=== PATIENT | female | born 1990 | race Caucasian/White ===

== ENCOUNTER 2016-10-21 12:38 | Emergency (ER) | payer OTHER ==
--- NOTE | 2016-10-21 15:08 | ED ORDER SUMMARY ---
..... Patient: KAITLIN MCCALL OrderSheet [facility] VisitID: [id number] [address] [place] [address] 25y, F Registration Date/Time: 10/21/2016 ORDER SHEET Weight: 42.6 kg (stated) Allergies: No Known Drug Allergy GENERAL ORDERS: CBC w Diff Urgent (13:10 10/21/2016 Michel Payne) (Ack 13:11 TBergley) (13:27 JSanders R.N.) CMP Urgent (13:10 10/21/2016 Michel Payne) (Ack 13:11 TBergley) (13:27 JSanders R.N.) UA-Culture if indicated Urgent (13:10 10/21/2016 Michel Payne) (13:10 JSanders R.N.) (13:11 TBergley) Urine Urgent (13:10/21/2016 Michel Payne) (13:11 TBergley) (13:11 JSanders R.N.) MEDICATION ORDERS: IV FLUIDS: IV NS : initial bolus none -, then 1000 mL/hr for X1 (NOW) (13:10 10/21/2016 Michel Payne) (13:26 JSanders R.N.) Zofran IV 4 mg (NOW) (13:10 10/21/2016 Michel Payne) (13:27 RASHIDanders R.N.) IV NS : initial bolus none -, then 1000 mL/hr for X1 (NOW) (14:32 10/21/2016 Michel Payne) (14:38 RASHIDimbeck R.N.) Zofran IV 4 mg (NOW) (15:14 10/21/2016 Michel Payne) (15:33 RASHIDandertiana R.N.) ORDER SHEET NOTES: [Electronically signed by Varghese Davis Dr. (15:14 10/21/2016)] [Electronically signed by Nusrat Graves R.N. (15:50 10/21/2016)] [Electronically locked/signed by Nusrat Graves R.N. (15:50 10/21/2016)]
--- NOTE | 2016-10-21 15:08 | ED CLINICAL REPORT ---
Clinical Report - Physicians/Mid Levels [facility] [address] [place] [address] 10/21/2016 12:42 Patient: KAITLIN MCCALL Time Seen: 12:54; initial patient contact. Arrived- By private vehicle. Historian- patient. HISTORY OF PRESENT ILLNESS Chief Complaint: VOMITING. This started about 2 days ago and is still present (persistent). The patient has had nausea and vomiting. No diarrhea, constipation or flank pain. She has had mild, crampy abdominal pain. The pain is described as located in the left side of the abdomen and associated with nausea and vomiting. No diarrhea or radiation of abdominal pain to the back. The illness is described as moderate. (Recently found out she was on a home test.). Similar symptoms previously: None. Recent medical care: Not recently seen/assessed. REVIEW OF SYSTEMS No fever, difficulty with urination or headache. She has missed periods. All systems otherwise negative, except as recorded above. PAST HISTORY Costochondritis. Pleurisy. Bronchitis. Depression. Contusion. Abrasion(s). Tonsillitis. UTI - Urinary Tract Infection. SOCIAL HISTORY Current every day smoker. Occasional alcohol use. History of drug use: marijuana. ADDITIONAL NOTES The nursing notes have been reviewed with agreement regarding the chief complaint, PMH and patient medications and allergies. PHYSICAL EXAM Vital Signs: 10/21/2016 12:54 BP: 95/58. HR: 77. RR: 18. O2 saturation: 100%. Temp: 98.3 F. Pain level now: 6/10. Have been reviewed. Hypotensive. Heart rate normal. Respiratory rate normal. Temperature normal. Oxygen saturation normal. Appearance: Alert. Oriented X3. No acute distress. Eyes: Eyes normal inspection. ENT: Dry mucous membranes present. Neck: Normal inspection. CVS: Normal heart rate and rhythm. Heart sounds normal. Respiratory: No respiratory distress. Breath sounds normal. Abdomen: Soft. Mild tenderness in the left side of the abdomen. No guarding or rebound tenderness. Bowel sounds normal. No organomegaly. No mass. Back: Normal inspection. No CVA tenderness. Skin: Normal skin color. No rash. Extremities: No lower extremity edema. Neuro: Oriented X 3. LABS, X-RAYS, AND EKG Laboratory Tests: UA-Culture if indicated: (KARYN: 10/21/2016 13:00) ( [facility] 10/21/2016 13:49) Final results Test Result Flag Units (Reference) URINE COLOR YELLOW URINE APPEARANCE CLEAR URINE GLUCOSE NEGATIVE (NEGATIVE) URINE BILIRUBIN NEGATIVE (NEGATIVE) URINE KETONE 3+ (NEGATIVE) URINE SPECIFIC GRAVITY >= 1.030 (1.010-1.030) URINE PH 6.0 (5.0-8.0) URINE PROTEIN TRACE (NEGATIVE) URINE UROBILINOGEN 1.0 EU/dL (0.2-1.0) URINE NITRITE NEGATIVE (NEGATIVE) URINE BLOOD NEGATIVE (NEGATIVE) URINE LEUK ESTERASE NEGATIVE (NEGATIVE) URINE RBC NONE SEEN rbc/hpf (0-1) URINE WBC 0-1 wbc/hpf (0-1) URINE EPITHELIAL CELLS 1-3 EPI/hpf (0-5) URINE BACTERIA NONE SEEN (NONE SEEN) URINE COMMENT CULT NOT INDICATED URINE CULTURES ARE SET-UP BASED ON THE FOLLOWING CRITERIA:POSITIVE NITRITEPOSITIVE LEUKOCYTE ESTERASEGREATER THAN 10 WHITE BLOOD CELLSMODERATE (2+) OR GREATER BACTERIA Urine: (KARYN: 10/21/2016 13:00) ( [facility] 10/21/2016 13:24) Final results Test Result Flag Units (Reference) URINE POSITIVE CBC w Diff: (KARYN: 10/21/2016 12:25) ( [facility] 10/21/2016 13:44) Final results Test Result Flag Units (Reference) WHITE BLOOD COUNT 7.9 K/uL (4.5-11.5) RED BLOOD COUNT 4.64 M/uL (4.00-5.20) HEMOGLOBIN 13.3 gm/dL (12.0-16.0) HEMATOCRIT 40.5 % (36.0-46.0) MEAN CELL VOLUME 87 fL (80-100) MEAN CORPUSCULAR HGB 29 pg (26-34) MEAN CORPUSCULAR HGB CONC 33 g/dL (31-37) RED CELL DISTRIBUTION WIDTH 14.4 % (11.6-14.8) PLATELET COUNT 268 K/uL (150-400) NEUTROPHIL % 74.9 % (50-75) LYMPH % 16.3 L % (25-40) MONO % 7.8 % (3-14) EOSINOPHIL % 0.7 % (0-4) BASOPHIL % 0.3 % (0-2) CMP: (KARYN: 10/21/2016 12:25) ( MsgRcvd 10/21/2016 14:12) Final results Test Result Flag Units (Reference) GLUCOSE 76 mg/dL (70-110) BUN 9 mg/dL (7-18) CREATININE 0.8 mg/dL (0.6-1.3) Estimated GFR >60 mL/min Estimated GFR- >60 mL/min Note: Persistent reduction over 3 months in eGFR<60 mL/min/1.73 m2 defines CKD. Patients with eGFR values>=60 mL/min/1.73 m2 may also have CKD if evidence ofpersistent proteinuria. Additional information may be foundat www.kidney.org. SODIUM 136 mmol/L (136-145) POTASSIUM 4.0 mmol/L (3.5-5.1) CHLORIDE 98 mmol/L (98-107) CARBON DIOXIDE 20 L mmol/L (21-32) CALCIUM 9.4 mg/dL (8.5-10.1) TOTAL PROTEIN 7.9 g/dL (6.4-8.2) ALBUMIN 4.0 g/dL (3.3-5.0) BILIRUBIN, TOTAL 0.6 mg/dL (0.0-1.0) ALKALINE PHOSPHATASE 67 U/L (46-116) AST (SGOT) 13 L U/L (15-37) ALT (SGPT) 21 U/L (12-78) . PROGRESS AND PROCEDURES Course of Care: 15:08. Evaluation after IV fluids and Zofran. The patient's symptoms are now gone. Physical exam findings are improved. Disposition: Discharged home in good and improved condition. Condition: good. CLINICAL IMPRESSION Vomiting with nausea and dehydration. Not intractable or bilious. First trimester ; positive test in emergency department. Ultrasound was not performed to determine location because the pain was not related to . INSTRUCTIONS Drink plenty of fluids. Prescription Medications: Zofran (orally disintegrating tablets) 4 mg: take 1 orally every 6 hours as needed for nausea and vomiting. Dispense ten (10). No refill. Substitution is permissible. Follow-up: Screening today revealed the patient's blood pressure to be in the normal range. Follow-up with: [facility], [facility], , [address] [place] [address], [address] [place] [address] Follow up in about three days. Call for an appointment. (Electronically signed by Varghese Davis Dr. 10/21/2016 15:14)
--- NOTE | 2016-10-21 15:08 | ED NURSING NOTES ---
Clinical Report - Nurses [facility] [address] [place] [address] 10/21/2016 12:42 Patient: KAITLIN MCCALL TRIAGE Triage time 12:54 Oct 21 2016. Acuity: LEVEL 4. Chief Complaint: NAUSEA and VOMITING and (Patient just found out she was couple weeks ago). 13:04 10/21/16. SEPSIS SCREEN: Sepsis Screen. Negative (no infection suspected/documented). TRINA COMA SCORE: [place] Coma Scale: 15- eyes open spontaneously (4); best verbal response- oriented x 4 (5); best motor response- obeys commands (6). --13:04 Nusrat Graves R.N. 12:54 10/21/16. BP: 95/58 (regular adult cuff) taken on the left arm, while sitting. HR: 77. RR: 18 (regular). O2 saturation: 100% on room air. Temp: 98.3 F (oral). Pain level now: 6/10. Additional comments: Lower back. --13:04 Nusrat Graves R.N. Weight: 42.6 kg stated. Height/Length: 64 inches Per Patient. BMI: 16.1. --12:58 Nusrat Graves R.N. Medications None. --12:55 Nusrat Graves R.N. Allergies No Known Drug Allergy. --12:55 Nusrat Graves R.N. History Historian: patient. Primary physician (EVENovember). This is a new problem. Started while sleeping (3 days ago). She has had nausea, vomiting and cramping abdominal pain. The pain is described as located in the left side of the abdomen. Last oral intake by patient was (drank water couple hours ago, hasnt eaten for two days). Treatment HOSPITAL ADMISSIONS OFFICER: None. PAST MEDICAL HX: Last normal menstrual period- Sep 01. Sexual history - sexually active. Currently : took home test, not confirmed by physician yet. In 1st trimester. confirmed with home test and urine test. Has had no care. SOCIAL HX: Light tobacco smoker (cigarette)- less than 1/2 a pack per day. Occasional alcohol use; consumes liquor. History of heavy drug use: marijuana. Recently used drugs yesterday. No recent travel. No infectious disease exposure. No known contact with a sick individual. ABUSE ASSESSMENT: No report of abuse. --13:04 Nusrat Graves R.N. PROBLEMS: Costochondritis. Pleurisy. Bronchitis. Depression. Contusion. Abrasion(s). Tonsillitis. UTI - Urinary Tract Infection. Immunizations. --12:57 Nusrat Graves R.N. ADDITIONAL SURGERIES: no known surgeries. Interventions ID band on patient. To treatment room. --13:04 Nusrat Graves R.N. PHYSICAL ASSESSMENT 13:05 10/21/16. Ambulatory to room. Patient gowned. GENERAL / NEURO / PSYCH: Alert. Oriented X 4. Appears in pain. HEENT: Mucous membranes are pink. RESPIRATORY: Respirations not labored. CVS: Capillary refill less than 2 seconds. GI / : The patient has had nausea. Emesis noted. Has vomited numerous times. Guarding present. Stool color normal. SKIN: Skin is warm. --13:05 Nusrat Graves R.N. NURSING PROGRESS NOTES 13:06 10/21/16. The plan of care for this patient has been created. Patient gowned. Head of bed elevated. Reassurance given. Two patient identifiers checked. Call light placed in reach. Side rails up x 1. Bed placed in lowest position. Brakes of bed on. Patient ready for evaluation- chart flagged and ED physician notified. --13:06 Nusrat Graves R.N. 13:22 10/21/2016 Zofran (Ondansetron HCl) IVP 4 mg given over 2 minute(s) via site #1. Allergies verified and confirmed 5 rights. IV patency established. IV site checked: no pain, redness, or swelling. IV flushed thoroughly pre- and post-medication administration. IVP given by RN. --13:27 Nusrat Graves R.N. 13:26 10/21/2016 Site #1 started via IV in the right antecubital space with an 20g angiocath, with aseptic technique and good blood return; one attempt. Blood drawn: rainbow set. Saline lock flushed with 10 mL saline. --13:26 Nusrat Graves R.N. 13:26 10/21/2016 Started bag #1 1000 mL IV Fluids IV NS (Saline); at 1000 mL/hr over 1 hour(s) via site #1 via dial-a-flow. Allergies verified and confirmed 5 rights. IV patency established. IV site checked: no pain, redness, or swelling. IV flushed thoroughly pre- and post-medication administration. --13:26 Nusrat Graves R.N. 14:27 10/21/16. BP: 102/61 (regular adult cuff) taken on the left arm, while sitting. HR: 68. RR: 18 (regular). O2 saturation: 100% on room air. Temp: 98.2 F (oral). Pain level now: 0/10. --14:28 Nusrat Graves R.N. 14:28 10/21/2016 IV Fluids IV NS Discontinued: bag #1 completed. Total amount infused: 1000 mL. IV patency established. IV site checked: no pain, redness, or swelling. IV flushed thoroughly. --14:28 Nusrat Graves R.N. 14:28 10/21/2016 Zofran IVP Response: no adverse reaction pain is gone now. Symptoms have improved the patient feels better. --14:29 Nusrat Graves R.N. 14:28 10/21/16. ( Nausea is gone now and fluid is done. Patient sitting quietly watching TV). --14:28 Nusrat Graves R.N. 14:38 10/21/2016 Started bag #1 1000 mL IV Fluids IV NS (Saline); bolus of 1000 mL over 1 hour(s) via site #1. Allergies verified and confirmed 5 rights. IV patency established. IV site checked: no pain, redness, or swelling. IV flushed thoroughly pre- and post-medication administration. --14:38 Luc Villeda R.N. DISPOSITION / DISCHARGE <<STRICKEN ENTRY-- 13:41 10/21/2016 Site #1 removed upon discharge. Bandaid applied. --13:41 Nusrat Graves R.N. --END STRIKE>> Charted on wrong patient. --13:44 Nusrat Graves R.N. <<STRICKEN ENTRY-- 13:40 10/21/16. BP: 114/75 (regular adult cuff) taken on the left arm, while sitting. HR: 97. RR: 18 (regular). O2 saturation: 98% on room air. Temp: 98.1 F (oral). Pain level now: 0/10. --13:42 Nusrat Graves R.N. --END STRIKE>> Charted on wrong patient. --13:43 Nusrat Graves R.N. <<STRICKEN ENTRY-- 13:42 10/21/16. Condition at departure: unchanged. No learning barriers present. Discharge instructions provided and reviewed with the patient. Reviewed warnings (Patient understands DVT sxs). Patient verbalized understanding. Written instructions provided in [place]. The patient was discharged by the physician. --13:42 Nusrat Graves R.N. --END STRIKE>> Charted On Wrong Patient --13:43 Nusrat Graves R.N. <<STRICKEN ENTRY-- Departure time: 13:42 Oct 21 2016. --13:42 Nusrat Graves R.N. --END STRIKE>> Charted On Wrong Patient --13:43 Nusrat Graves R.N. 15:32 10/21/2016 IV Fluids IV NS Discontinued: bag #2 completed upon discharge. Total amount infused: 1000 mL. IV patency established. IV site checked: no pain, redness, or swelling. IV flushed thoroughly. --15:32 Nusrat Graves R.N. 15:33 10/21/2016 Zofran (Ondansetron HCl) IVP 4 mg given over 1 minute(s) via site #1. Allergies verified and confirmed 5 rights. IV patency established. IV site checked: no pain, redness, or swelling. IV flushed thoroughly pre- and post-medication administration. IVP given by RN. --15:33 Nusrat Graves R.N. 15:40 10/21/2016 Site #1 removed upon discharge. Bandaid applied. --15:40 Nusrat Graves R.N. 15:41 10/21/16. Condition at departure: improved. No learning barriers present. Discharge instructions provided and reviewed with the patient. Reviewed medication(s) side effects, precautions and dosing information. Prescription(s) given to the patient. Patient verbalized understanding. Written instructions provided in [place]. The patient was discharged by the physician. She was discharged home and accompanied by spouse. She left the Emergency Department ambulatory and via private vehicle. Spouse driving. --15:41 Nursat Graves R.N. 15:32 10/21/16. BP: 100/59 (regular adult cuff) taken on the left arm, while sitting. HR: 69. RR: 18 (regular). O2 saturation: 100% on room air. Temp: 97.8 F (oral). Pain level now: 0/10. --15:41 Nusrat Graves R.N. Locked/Released at 10/21/2016 15:50 by Nusrat Graves R.N.
--- NOTE | 2016-10-21 15:08 | ED ORDER SUMMARY ---
..... Patient: KAITLIN MCCALL OrderSheet [facility] VisitID: [id number] [address] [place] [address] 25y, F Registration Date/Time: 10/21/2016 ORDER SHEET Weight: 42.6 kg (stated) Allergies: No Known Drug Allergy GENERAL ORDERS: CBC w Diff Urgent (13:10 10/21/2016 Michel Payne) (Ack 13:11 TBergley) (13:27 JSanders R.N.) CMP Urgent (13:10 10/21/2016 Michel Payne) (Ack 13:11 TBergley) (13:27 JSanders R.N.) UA-Culture if indicated Urgent (13:10 10/21/2016 Michel Payne) (13:10 JSanders R.N.) (13:11 TBergley) Urine Urgent (13:10/21/2016 Michel Payne) (13:11 TBergley) (13:11 JSanders R.N.) MEDICATION ORDERS: IV FLUIDS: IV NS : initial bolus none -, then 1000 mL/hr for X1 (NOW) (13:10 10/21/2016 Michel Payne) (13:26 JSanders R.N.) Zofran IV 4 mg (NOW) (13:10 10/21/2016 Michel Payne) (13:27 RASHIDanders R.N.) IV NS : initial bolus none -, then 1000 mL/hr for X1 (NOW) (14:32 10/21/2016 Michel Payne) (14:38 RASHIDimbeck R.N.) Zofran IV 4 mg (NOW) (15:14 10/21/2016 Michel Payne) (15:33 RASHIDandertiana R.N.) ORDER SHEET NOTES: [Electronically signed by Varghese Davis Dr. (15:14 10/21/2016)] [Electronically signed by Nusrat Graves R.N. (15:50 10/21/2016)] [Electronically locked/signed by Nusrat Graves R.N. (15:50 10/21/2016)]
--- NOTE | 2016-10-21 15:08 | ED CLINICAL REPORT ---
Clinical Report - Physicians/Mid Levels [facility] [address] [place] [address] 10/21/2016 12:42 Patient: KAITLIN MCCALL Time Seen: 12:54; initial patient contact. Arrived- By private vehicle. Historian- patient. HISTORY OF PRESENT ILLNESS Chief Complaint: VOMITING. This started about 2 days ago and is still present (persistent). The patient has had nausea and vomiting. No diarrhea, constipation or flank pain. She has had mild, crampy abdominal pain. The pain is described as located in the left side of the abdomen and associated with nausea and vomiting. No diarrhea or radiation of abdominal pain to the back. The illness is described as moderate. (Recently found out she was on a home test.). Similar symptoms previously: None. Recent medical care: Not recently seen/assessed. REVIEW OF SYSTEMS No fever, difficulty with urination or headache. She has missed periods. All systems otherwise negative, except as recorded above. PAST HISTORY Costochondritis. Pleurisy. Bronchitis. Depression. Contusion. Abrasion(s). Tonsillitis. UTI - Urinary Tract Infection. SOCIAL HISTORY Current every day smoker. Occasional alcohol use. History of drug use: marijuana. ADDITIONAL NOTES The nursing notes have been reviewed with agreement regarding the chief complaint, PMH and patient medications and allergies. PHYSICAL EXAM Vital Signs: 10/21/2016 12:54 BP: 95/58. HR: 77. RR: 18. O2 saturation: 100%. Temp: 98.3 F. Pain level now: 6/10. Have been reviewed. Hypotensive. Heart rate normal. Respiratory rate normal. Temperature normal. Oxygen saturation normal. Appearance: Alert. Oriented X3. No acute distress. Eyes: Eyes normal inspection. ENT: Dry mucous membranes present. Neck: Normal inspection. CVS: Normal heart rate and rhythm. Heart sounds normal. Respiratory: No respiratory distress. Breath sounds normal. Abdomen: Soft. Mild tenderness in the left side of the abdomen. No guarding or rebound tenderness. Bowel sounds normal. No organomegaly. No mass. Back: Normal inspection. No CVA tenderness. Skin: Normal skin color. No rash. Extremities: No lower extremity edema. Neuro: Oriented X 3. LABS, X-RAYS, AND EKG Laboratory Tests: UA-Culture if indicated: (KARYN: 10/21/2016 13:00) ( [facility] 10/21/2016 13:49) Final results Test Result Flag Units (Reference) URINE COLOR YELLOW URINE APPEARANCE CLEAR URINE GLUCOSE NEGATIVE (NEGATIVE) URINE BILIRUBIN NEGATIVE (NEGATIVE) URINE KETONE 3+ (NEGATIVE) URINE SPECIFIC GRAVITY >= 1.030 (1.010-1.030) URINE PH 6.0 (5.0-8.0) URINE PROTEIN TRACE (NEGATIVE) URINE UROBILINOGEN 1.0 EU/dL (0.2-1.0) URINE NITRITE NEGATIVE (NEGATIVE) URINE BLOOD NEGATIVE (NEGATIVE) URINE LEUK ESTERASE NEGATIVE (NEGATIVE) URINE RBC NONE SEEN rbc/hpf (0-1) URINE WBC 0-1 wbc/hpf (0-1) URINE EPITHELIAL CELLS 1-3 EPI/hpf (0-5) URINE BACTERIA NONE SEEN (NONE SEEN) URINE COMMENT CULT NOT INDICATED URINE CULTURES ARE SET-UP BASED ON THE FOLLOWING CRITERIA:POSITIVE NITRITEPOSITIVE LEUKOCYTE ESTERASEGREATER THAN 10 WHITE BLOOD CELLSMODERATE (2+) OR GREATER BACTERIA Urine: (KARYN: 10/21/2016 13:00) ( [facility] 10/21/2016 13:24) Final results Test Result Flag Units (Reference) URINE POSITIVE CBC w Diff: (KARYN: 10/21/2016 12:25) ( [facility] 10/21/2016 13:44) Final results Test Result Flag Units (Reference) WHITE BLOOD COUNT 7.9 K/uL (4.5-11.5) RED BLOOD COUNT 4.64 M/uL (4.00-5.20) HEMOGLOBIN 13.3 gm/dL (12.0-16.0) HEMATOCRIT 40.5 % (36.0-46.0) MEAN CELL VOLUME 87 fL (80-100) MEAN CORPUSCULAR HGB 29 pg (26-34) MEAN CORPUSCULAR HGB CONC 33 g/dL (31-37) RED CELL DISTRIBUTION WIDTH 14.4 % (11.6-14.8) PLATELET COUNT 268 K/uL (150-400) NEUTROPHIL % 74.9 % (50-75) LYMPH % 16.3 L % (25-40) MONO % 7.8 % (3-14) EOSINOPHIL % 0.7 % (0-4) BASOPHIL % 0.3 % (0-2) CMP: (KARYN: 10/21/2016 12:25) ( MsgRcvd 10/21/2016 14:12) Final results Test Result Flag Units (Reference) GLUCOSE 76 mg/dL (70-110) BUN 9 mg/dL (7-18) CREATININE 0.8 mg/dL (0.6-1.3) Estimated GFR >60 mL/min Estimated GFR- >60 mL/min Note: Persistent reduction over 3 months in eGFR<60 mL/min/1.73 m2 defines CKD. Patients with eGFR values>=60 mL/min/1.73 m2 may also have CKD if evidence ofpersistent proteinuria. Additional information may be foundat www.kidney.org. SODIUM 136 mmol/L (136-145) POTASSIUM 4.0 mmol/L (3.5-5.1) CHLORIDE 98 mmol/L (98-107) CARBON DIOXIDE 20 L mmol/L (21-32) CALCIUM 9.4 mg/dL (8.5-10.1) TOTAL PROTEIN 7.9 g/dL (6.4-8.2) ALBUMIN 4.0 g/dL (3.3-5.0) BILIRUBIN, TOTAL 0.6 mg/dL (0.0-1.0) ALKALINE PHOSPHATASE 67 U/L (46-116) AST (SGOT) 13 L U/L (15-37) ALT (SGPT) 21 U/L (12-78) . PROGRESS AND PROCEDURES Course of Care: 15:08. Evaluation after IV fluids and Zofran. The patient's symptoms are now gone. Physical exam findings are improved. Disposition: Discharged home in good and improved condition. Condition: good. CLINICAL IMPRESSION Vomiting with nausea and dehydration. Not intractable or bilious. First trimester ; positive test in emergency department. Ultrasound was not performed to determine location because the pain was not related to . INSTRUCTIONS Drink plenty of fluids. Prescription Medications: Zofran (orally disintegrating tablets) 4 mg: take 1 orally every 6 hours as needed for nausea and vomiting. Dispense ten (10). No refill. Substitution is permissible. Follow-up: Screening today revealed the patient's blood pressure to be in the normal range. Follow-up with: [facility], [facility], , [address] [place] [address], [address] [place] [address] Follow up in about three days. Call for an appointment. (Electronically signed by Varghese Davis Dr. 10/21/2016 15:14)
--- NOTE | 2016-10-21 15:50 | ED MAR SUMMARY ---
..... Medication Administration Record [facility] [address] [place] [address] Patient: KAITLIN MCCALL Visit ID: [id number] 25y, F Weight: 42.6 kg Height/Length: 64 in BMI: 16.1 ALLERGIES: No Known Drug Allergy Given 13:22 10/21/2016 Nusrat Graves R.N. Medication Administered: ZOFRAN [IVP] (ONDANSETRON HCL), Dose: 4 mg IVP over 2 minute(s), Site: #1. Medication Ordered: Zofran IV 4 mg (NOW). Start 13:26 10/21/2016 Nusrat Graves R.N., Stop 14:28 10/21/2016 Nusrat Graves R.N. Medication Administered: IV NS (SALINE), Dose: IV Fluids over 1 hour(s), Rate: 1000 mL/hr, Dispensed: 1000 mL bag, Site: #1 right AC. Medication Ordered: IV NS : initial bolus none -, then 1000 mL/hr for X1 (NOW). Start 14:38 10/21/2016 Luc Villeda R.N., Stop 15:32 10/21/2016 Nusrat Graves R.N. Medication Administered: IV NS (SALINE), Dose: IV Fluids, Bolus: 1000 mL over 1 hour(s), Dispensed: 1000 mL bag, Site: #1 right AC. Medication Ordered: IV NS : initial bolus none -, then 1000 mL/hr for X1 (NOW). Given 15:33 10/21/2016 Nusrat Graves R.N. Medication Administered: ZOFRAN [IVP] (ONDANSETRON HCL), Dose: 4 mg IVP over 1 minute(s), Site: #1 right AC. Medication Ordered: Zofran IV 4 mg (NOW).
--- NOTE | 2016-10-21 15:50 | ED MED RECONCILIATION SUMMARY ---
Patient: KAITLIN MCCALL Medication Reconciliation Report [facility] VisitID: [id number] [address] [place] [address] 25y, F Registration Date/Time: 10/21/2016 Weight: 42.6 kg Height/Length: 64 in. BMI: 16.1 ALLERGIES: No Known Drug Allergy The patient's Home Medications are listed below: NONE. The source(s) of the original Home Medication information: Not obtained. The following Medications were given to the patient in the Emergency Department: IV NS IV Fluids bolus 0, then 1000 mL/hr, administered: 10/21/2016 1:26:00 PM Zofran [IVP] IVP 4 mg, administered: 10/21/2016 1:22:00 PM IV NS IV Fluids bolus 1000 mL over 1 hour(s), administered: 10/21/2016 2:38:00 PM Zofran [IVP] IVP 4 mg, administered: 10/21/2016 3:33:00 PM The following Medications were prescribed to the patient: Zofran (orally disintegrating tablets) 4 mg: take 1 orally every 6 hours as needed for nausea and vomiting. Dispense ten (10). No refill. Substitution is permissible. -- Varghese Davis Dr.
--- NOTE | 2016-10-21 15:50 | ED DISCHARGE INSTRUCTIONS ---
Patient: KAITLIN MCCALL General Instructions [facility] VisitID: [id number] [address] [place] [address] 25y, F Registration Date/Time: 10/21/2016 Vomiting with nausea and dehydration. Not intractable or bilious. First trimester ; positive test in emergency department. Ultrasound was not performed to determine location because the pain was not related to . INSTRUCTIONS Drink plenty of fluids. Prescription Medications: Zofran (orally disintegrating tablets) 4 mg: take 1 orally every 6 hours as needed for nausea and vomiting. Dispense ten (10). No refill. Substitution is permissible. Follow-up: Screening today revealed the patient's blood pressure to be in the normal range. [facility] with: [facility], [facility], , [address] [place] [address], [address], [place] [address] Follow up in about three days. Call for an appointment. ADDITIONAL INFORMATION Vomiting [6Yr-Adult] Vomiting is a common symptom that may be due to different causes. These include gastroenteritis ("stomach flu"), food poisoning and gastritis. There are other more serious causes of vomiting which may be hard to diagnose early in the illness. Therefore, it is important to watch for the warning signs listed below. The main danger from repeated vomiting is dehydration. This is due to excess loss of water and minerals from the body. When this occurs, body fluids must be replaced. Home Care: If symptoms are severe, rest at home for the next 24 hours. You may use acetaminophen (Tylenol) or ibuprofen (Motrin, Advil) to control fever, unless another medicine was prescribed. [NOTE : If you have chronic liver or kidney disease or ever had a stomach ulcer or GI bleeding, talk with your doctor before using these medicines.] (Aspirin should never be used in anyone under 18 years of age who is ill with a fever. It may cause severe liver damage.) Avoid tobacco and alcohol use, which may worsen your symptoms. If medicines for vomiting were prescribed, take as directed. Once vomiting stops, then follow these guidelines: During The First 12-24 Hours follow the diet below: FRUIT JUICES: Apple, grape juice, clear fruit drinks, and electrolyte replacement drinks. BEVERAGES: Soft drinks without caffeine; mineral water (plain or flavored), decaffeinated tea and coffee. SOUPS: Clear broth, consomm and bouillon DESSERTS: Plain gelatin, popsicles and fruit juice bars. As you feel better, you may add 6-8 ounces of yogurt per day. During The Next 24 Hours you may add the following to the above: Hot cereal, plain toast, bread, rolls, crackers Plain noodles, rice, mashed potatoes, chicken noodle or rice soup Unsweetened canned fruit (avoid pineapple), bananas Limit caffeine and chocolate. No spices or seasonings except salt. During The Next 24 Hours Gradually resume a normal diet, as you feel better and your symptoms lessen. Follow Up with your doctor as advised if you are not improving over the next 2-3 days. Get Prompt Medical Attention if any of the following occur: Constant right-sided lower abdominal pain or increasing general abdominal pain Continued vomiting (unable to keep liquids down) for 24 hours Frequent diarrhea (more than 5 times a day); blood (red or black color) or mucus in diarrhea Reduced urine output or extreme thirst Weakness, dizziness or fainting Unusually drowsy or confused Fever of 100.4F (38C) oral or higher, not better with fever medication Yellow color of the eyes or skin Your exam today shows that you are . During , it is normal to develop tender swollen breasts, frequent urination and mild vaginal discharge. During the first three months, nausea is common. Guidelines For A Healthy : To ensure that your baby is born healthy there are certain things that you can do: When you feel tired, you should REST. This is especially true in the later months of . Your body needs more FLUIDS than you may be used to: You should drink 8-10 glasses of juice, milk or water. Eat well-balanced MEALS at regular intervals to supply your body with enough protein. You can expect a total weight gain of about 30 pounds during the . Do not try to diet or lose weight while you are . Because of the extra nutritional needs during , take one VITAMIN daily. Do not take any other MEDICINE during your (prescribed or dxuz-eig-nrulnof) unless your doctor specifically recommends this. Many drugs can have harmful effects on the growing baby. If NAUSEA or VOMITING become a problem, avoid greasy and fried foods. Eat several smaller meals throughout the day rather than three large meals. If you SMOKE, you must stop. The nicotine you breathe in goes right to the baby. Stay away from ALCOHOL, even in moderate amounts. Daily drinking will harm your baby and can cause permanent brain damage. RECREATIONAL DRUGS are harmful, especially cocaine, crack, and heroin. Marijuana should also be avoided. If you were using recreational drugs or prescribed medicine when you found out that you were , talk to your doctor about possible effects on the fetus. Follow Up: Call to arrange for care. This can be provided by your family doctor, an canvassing manager ( specialist) or a primary care clinic. Get Prompt Medical Attention if any of the following occur: Vaginal bleeding Moderate or severe abdominal or back pain Excessive vomiting, unable to keep any fluids down for six hours Burning with urination Headache, dizziness or rapid weight gain Your exam today shows that you are . During , it is normal to develop tender swollen breasts, frequent urination and mild vaginal discharge. During the first three months, nausea is common. Guidelines For A Healthy : To ensure that your baby is born healthy there are certain things that you can do: When you feel tired, you should REST. This is especially true in the later months of . Your body needs more FLUIDS than you may be used to: You should drink 8-10 glasses of juice, milk or water. Eat well-balanced MEALS at regular intervals to supply your body with enough protein. You can expect a total weight gain of about 30 pounds during the . Do not try to diet or lose weight while you are . Because of the extra nutritional needs during , take one VITAMIN daily. Do not take any other MEDICINE during your (prescribed or sppq-arr-xtltftn) unless your doctor specifically recommends this. Many drugs can have harmful effects on the growing baby. If NAUSEA or VOMITING become a problem, avoid greasy and fried foods. Eat several smaller meals throughout the day rather than three large meals. If you SMOKE, you must stop. The nicotine you breathe in goes right to the baby. Stay away from ALCOHOL, even in moderate amounts. Daily drinking will harm your baby and can cause permanent brain damage. RECREATIONAL DRUGS are harmful, especially cocaine, crack, and heroin. Marijuana should also be avoided. If you were using recreational drugs or prescribed medicine when you found out that you were , talk to your doctor about possible effects on the fetus. Follow Up: Call to arrange for care. This can be provided by your family doctor, an canvassing manager ( specialist) or a primary care clinic. Get Prompt Medical Attention if any of the following occur: Vaginal bleeding Moderate or severe abdominal or back pain Excessive vomiting, unable to keep any fluids down for six hours Burning with urination Headache, dizziness or rapid weight gain Ondansetron Oral disintegrating tablet What is this medicine? ONDANSETRON (on OLEGARIO se amish) is used to treat nausea and vomiting caused by chemotherapy. It is also used to prevent or treat nausea and vomiting after surgery. How should I use this medicine? These tablets are made to dissolve in the mouth. Do not try to push the tablet through the foil backing. With dry hands, peel away the foil backing and gently remove the tablet. Place the tablet in the mouth and allow it to dissolve, then swallow. While you may take these tablets with water, it is not necessary to do so. Talk to your land surveyor assistant regarding the use of this medicine in children. Special care may be needed. What side effects may I notice from receiving this medicine? Side effects that you should report to your doctor or health overnight caregiver as soon as possible: allergic reactions like skin rash, itching or hives, swelling of the face, lips, or tongue breathing problems dizziness fast or irregular heartbeat feeling faint or lightheaded, falls fever and chills swelling of the hands and feet tightness in the chest Side effects that usually do not require medical attention (report to your doctor or health overnight caregiver if they continue or are bothersome): constipation or diarrhea headache What may interact with this medicine? Do not take this medicine with any of the following medications: -apomorphine -cisapride -dofetilide -dronedarone -pimozide -thioridazine -ziprasidone This medicine may also interact with the following medications: -carbamazepine -phenytoin -rifampicin -tramadol -other medicines that prolong the QT interval (cause an abnormal heart rhythm) What if I miss a dose? If you miss a dose, take it as soon as you can. If it is almost time for your next dose, take only that dose. Do not take double or extra doses. Where should I keep my medicine? Keep out of the reach of children. Store between 2 and 30 degrees C (36 and 86 degrees F). Throw away any unused medicine after the expiration date. What should I tell my health care provider before I take this medicine? They need to know if you have any of these conditions: heart disease history of irregular heartbeat liver disease low levels of magnesium or potassium in the blood an unusual or allergic reaction to ondansetron, granisetron, other medicines, foods, dyes, or preservatives or trying to get breast-feeding What should I watch for while using this medicine? Check with your doctor or health overnight caregiver as soon as you can if you have any sign of an allergic reaction. You have been given the following additional information: Vomiting (6Y-Adult) , New Dx , New Dx Ondansetron Oral disintegrating tablet (Electronically signed by Varghese Davis Dr. 10/21/2016 15:14)
--- NOTE | 2016-10-21 15:50 | ED MAR SUMMARY ---
..... Medication Administration Record [facility] [address] [place] [address] Patient: KAITLIN MCCALL Visit ID: [id number] 25y, F Weight: 42.6 kg Height/Length: 64 in BMI: 16.1 ALLERGIES: No Known Drug Allergy Given 13:22 10/21/2016 Nusrat Graves R.N. Medication Administered: ZOFRAN [IVP] (ONDANSETRON HCL), Dose: 4 mg IVP over 2 minute(s), Site: #1. Medication Ordered: Zofran IV 4 mg (NOW). Start 13:26 10/21/2016 Nusrat Graves R.N., Stop 14:28 10/21/2016 Nusrat Graves R.N. Medication Administered: IV NS (SALINE), Dose: IV Fluids over 1 hour(s), Rate: 1000 mL/hr, Dispensed: 1000 mL bag, Site: #1 right AC. Medication Ordered: IV NS : initial bolus none -, then 1000 mL/hr for X1 (NOW). Start 14:38 10/21/2016 Luc Villeda R.N., Stop 15:32 10/21/2016 Nusrat Graves R.N. Medication Administered: IV NS (SALINE), Dose: IV Fluids, Bolus: 1000 mL over 1 hour(s), Dispensed: 1000 mL bag, Site: #1 right AC. Medication Ordered: IV NS : initial bolus none -, then 1000 mL/hr for X1 (NOW). Given 15:33 10/21/2016 Nusrat Graves R.N. Medication Administered: ZOFRAN [IVP] (ONDANSETRON HCL), Dose: 4 mg IVP over 1 minute(s), Site: #1 right AC. Medication Ordered: Zofran IV 4 mg (NOW).
--- NOTE | 2016-10-21 15:50 | ED DISCHARGE INSTRUCTIONS ---
Patient: KAITLIN MCCALL General Instructions [facility] VisitID: [id number] [address] [place] [address] 25y, F Registration Date/Time: 10/21/2016 Vomiting with nausea and dehydration. Not intractable or bilious. First trimester ; positive test in emergency department. Ultrasound was not performed to determine location because the pain was not related to . INSTRUCTIONS Drink plenty of fluids. Prescription Medications: Zofran (orally disintegrating tablets) 4 mg: take 1 orally every 6 hours as needed for nausea and vomiting. Dispense ten (10). No refill. Substitution is permissible. Follow-up: Screening today revealed the patient's blood pressure to be in the normal range. [facility] with: [facility], [facility], , [address] [place] [address], [address], [place] [address] Follow up in about three days. Call for an appointment. ADDITIONAL INFORMATION Vomiting [6Yr-Adult] Vomiting is a common symptom that may be due to different causes. These include gastroenteritis ("stomach flu"), food poisoning and gastritis. There are other more serious causes of vomiting which may be hard to diagnose early in the illness. Therefore, it is important to watch for the warning signs listed below. The main danger from repeated vomiting is dehydration. This is due to excess loss of water and minerals from the body. When this occurs, body fluids must be replaced. Home Care: If symptoms are severe, rest at home for the next 24 hours. You may use acetaminophen (Tylenol) or ibuprofen (Motrin, Advil) to control fever, unless another medicine was prescribed. [NOTE : If you have chronic liver or kidney disease or ever had a stomach ulcer or GI bleeding, talk with your doctor before using these medicines.] (Aspirin should never be used in anyone under 18 years of age who is ill with a fever. It may cause severe liver damage.) Avoid tobacco and alcohol use, which may worsen your symptoms. If medicines for vomiting were prescribed, take as directed. Once vomiting stops, then follow these guidelines: During The First 12-24 Hours follow the diet below: FRUIT JUICES: Apple, grape juice, clear fruit drinks, and electrolyte replacement drinks. BEVERAGES: Soft drinks without caffeine; mineral water (plain or flavored), decaffeinated tea and coffee. SOUPS: Clear broth, consomm and bouillon DESSERTS: Plain gelatin, popsicles and fruit juice bars. As you feel better, you may add 6-8 ounces of yogurt per day. During The Next 24 Hours you may add the following to the above: Hot cereal, plain toast, bread, rolls, crackers Plain noodles, rice, mashed potatoes, chicken noodle or rice soup Unsweetened canned fruit (avoid pineapple), bananas Limit caffeine and chocolate. No spices or seasonings except salt. During The Next 24 Hours Gradually resume a normal diet, as you feel better and your symptoms lessen. Follow Up with your doctor as advised if you are not improving over the next 2-3 days. Get Prompt Medical Attention if any of the following occur: Constant right-sided lower abdominal pain or increasing general abdominal pain Continued vomiting (unable to keep liquids down) for 24 hours Frequent diarrhea (more than 5 times a day); blood (red or black color) or mucus in diarrhea Reduced urine output or extreme thirst Weakness, dizziness or fainting Unusually drowsy or confused Fever of 100.4F (38C) oral or higher, not better with fever medication Yellow color of the eyes or skin Your exam today shows that you are . During , it is normal to develop tender swollen breasts, frequent urination and mild vaginal discharge. During the first three months, nausea is common. Guidelines For A Healthy : To ensure that your baby is born healthy there are certain things that you can do: When you feel tired, you should REST. This is especially true in the later months of . Your body needs more FLUIDS than you may be used to: You should drink 8-10 glasses of juice, milk or water. Eat well-balanced MEALS at regular intervals to supply your body with enough protein. You can expect a total weight gain of about 30 pounds during the . Do not try to diet or lose weight while you are . Because of the extra nutritional needs during , take one VITAMIN daily. Do not take any other MEDICINE during your (prescribed or rzmv-jah-kcehoop) unless your doctor specifically recommends this. Many drugs can have harmful effects on the growing baby. If NAUSEA or VOMITING become a problem, avoid greasy and fried foods. Eat several smaller meals throughout the day rather than three large meals. If you SMOKE, you must stop. The nicotine you breathe in goes right to the baby. Stay away from ALCOHOL, even in moderate amounts. Daily drinking will harm your baby and can cause permanent brain damage. RECREATIONAL DRUGS are harmful, especially cocaine, crack, and heroin. Marijuana should also be avoided. If you were using recreational drugs or prescribed medicine when you found out that you were , talk to your doctor about possible effects on the fetus. Follow Up: Call to arrange for care. This can be provided by your family doctor, an cnc maintenance technician ( specialist) or a primary care clinic. Get Prompt Medical Attention if any of the following occur: Vaginal bleeding Moderate or severe abdominal or back pain Excessive vomiting, unable to keep any fluids down for six hours Burning with urination Headache, dizziness or rapid weight gain Your exam today shows that you are . During , it is normal to develop tender swollen breasts, frequent urination and mild vaginal discharge. During the first three months, nausea is common. Guidelines For A Healthy : To ensure that your baby is born healthy there are certain things that you can do: When you feel tired, you should REST. This is especially true in the later months of . Your body needs more FLUIDS than you may be used to: You should drink 8-10 glasses of juice, milk or water. Eat well-balanced MEALS at regular intervals to supply your body with enough protein. You can expect a total weight gain of about 30 pounds during the . Do not try to diet or lose weight while you are . Because of the extra nutritional needs during , take one VITAMIN daily. Do not take any other MEDICINE during your (prescribed or axzi-yjf-vogpnmq) unless your doctor specifically recommends this. Many drugs can have harmful effects on the growing baby. If NAUSEA or VOMITING become a problem, avoid greasy and fried foods. Eat several smaller meals throughout the day rather than three large meals. If you SMOKE, you must stop. The nicotine you breathe in goes right to the baby. Stay away from ALCOHOL, even in moderate amounts. Daily drinking will harm your baby and can cause permanent brain damage. RECREATIONAL DRUGS are harmful, especially cocaine, crack, and heroin. Marijuana should also be avoided. If you were using recreational drugs or prescribed medicine when you found out that you were , talk to your doctor about possible effects on the fetus. Follow Up: Call to arrange for care. This can be provided by your family doctor, an cnc maintenance technician ( specialist) or a primary care clinic. Get Prompt Medical Attention if any of the following occur: Vaginal bleeding Moderate or severe abdominal or back pain Excessive vomiting, unable to keep any fluids down for six hours Burning with urination Headache, dizziness or rapid weight gain Ondansetron Oral disintegrating tablet What is this medicine? ONDANSETRON (on OLEGARIO se amish) is used to treat nausea and vomiting caused by chemotherapy. It is also used to prevent or treat nausea and vomiting after surgery. How should I use this medicine? These tablets are made to dissolve in the mouth. Do not try to push the tablet through the foil backing. With dry hands, peel away the foil backing and gently remove the tablet. Place the tablet in the mouth and allow it to dissolve, then swallow. While you may take these tablets with water, it is not necessary to do so. Talk to your electronic data interchange specialist regarding the use of this medicine in children. Special care may be needed. What side effects may I notice from receiving this medicine? Side effects that you should report to your doctor or health animal caregiver as soon as possible: allergic reactions like skin rash, itching or hives, swelling of the face, lips, or tongue breathing problems dizziness fast or irregular heartbeat feeling faint or lightheaded, falls fever and chills swelling of the hands and feet tightness in the chest Side effects that usually do not require medical attention (report to your doctor or health animal caregiver if they continue or are bothersome): constipation or diarrhea headache What may interact with this medicine? Do not take this medicine with any of the following medications: -apomorphine -cisapride -dofetilide -dronedarone -pimozide -thioridazine -ziprasidone This medicine may also interact with the following medications: -carbamazepine -phenytoin -rifampicin -tramadol -other medicines that prolong the QT interval (cause an abnormal heart rhythm) What if I miss a dose? If you miss a dose, take it as soon as you can. If it is almost time for your next dose, take only that dose. Do not take double or extra doses. Where should I keep my medicine? Keep out of the reach of children. Store between 2 and 30 degrees C (36 and 86 degrees F). Throw away any unused medicine after the expiration date. What should I tell my health care provider before I take this medicine? They need to know if you have any of these conditions: heart disease history of irregular heartbeat liver disease low levels of magnesium or potassium in the blood an unusual or allergic reaction to ondansetron, granisetron, other medicines, foods, dyes, or preservatives or trying to get breast-feeding What should I watch for while using this medicine? Check with your doctor or health animal caregiver as soon as you can if you have any sign of an allergic reaction. You have been given the following additional information: Vomiting (6Y-Adult) , New Dx , New Dx Ondansetron Oral disintegrating tablet (Electronically signed by Varghese Davis Dr. 10/21/2016 15:14)
--- NOTE | 2016-10-21 15:50 | ED MED RECONCILIATION SUMMARY ---
Patient: KAITLIN MCCALL Medication Reconciliation Report [facility] VisitID: [id number] [address] [place] [address] 25y, F Registration Date/Time: 10/21/2016 Weight: 42.6 kg Height/Length: 64 in. BMI: 16.1 ALLERGIES: No Known Drug Allergy The patient's Home Medications are listed below: NONE. The source(s) of the original Home Medication information: Not obtained. The following Medications were given to the patient in the Emergency Department: IV NS IV Fluids bolus 0, then 1000 mL/hr, administered: 10/21/2016 1:26:00 PM Zofran [IVP] IVP 4 mg, administered: 10/21/2016 1:22:00 PM IV NS IV Fluids bolus 1000 mL over 1 hour(s), administered: 10/21/2016 2:38:00 PM Zofran [IVP] IVP 4 mg, administered: 10/21/2016 3:33:00 PM The following Medications were prescribed to the patient: Zofran (orally disintegrating tablets) 4 mg: take 1 orally every 6 hours as needed for nausea and vomiting. Dispense ten (10). No refill. Substitution is permissible. -- Varghese Davis Dr.
== END 2016-10-21 15:45 | disposition home or self-care (01) ==
LOC: ED SRH 12:38
DX: O21.1 Hyperemesis gravidarum with metabolic disturbance (principal); Z3A.00 Weeks of gestation of pregnancy not specified; E86.0 Dehydration; F17.210 Nicotine dependence, cigarettes, uncomplicated
CPT/HCPCS: 90004; 90100; 93070; 95059

== ENCOUNTER 2017-01-08 18:24 | Emergency (ER) | payer OTHER ==
--- NOTE | 2017-01-08 18:55 | ED NURSING NOTES ---
Clinical Report - Nurses [facility] [address] [place] [address] 01/08/2017 18:25 Patient: KAITLIN MCCALL TRIAGE Triage time 1831 PM. Acuity: LEVEL 5. Chief Complaint: INJURY TO RIGHT HAND. INJURY TO THE RIGHT MIDDLE FINGER (unknown injury). Alert. No acute distress. SEPSIS SCREEN: Sepsis Screen. Negative (no infection suspected/documented). --18:37 Leonor Aquino R.N. 18:29 01/08/17. BP: 102/65. HR: 70. RR: 15. O2 saturation: 100%. Temp: 98.3 F (oral). Pain level now: 01/13. --18:37 Leonor Aquino R.N. Weight: 42.6 kg stated. Height/Length: 64 inches Per Patient. BMI: 16.1. --18:31 Leonor Aquino R.N. Medications None. --18:32 Leonor Aquino R.N. Allergies No Known Drug Allergy. --18:32 Leonor Aquino R.N. Medication/allergy information source: the patient. --18:37 Leonor Aquino R.N. History Arrived by private vehicle. Historian: patient. Accompanied by family. ( Pt states that about 5 days ago noted to have her right middle finger swollen, with intermittent sharp pain, it itches, also feels numb/tight when bending. As per pt has no known injury to the middle finger. Here for further evaluation). This occurred (5 days). This was not an incised wound. Mechanism of injury not a fall, direct blow, puncture wound or burn. No suspected foreign body. ( unknown). She has had numbness of the right hand (middle 5 days). No neck pain or weakness. Treatment DIRECTOR OF MARKETING OPERATIONS: Ice. PAST MEDICAL HX: Tetanus status: up-to-date. Immunizations: up-to-date. SOCIAL HX: Current every day smoker. Occasional alcohol use. History of drug use. Recently used drugs just prior to arrival. No infectious disease exposure. SELF HARM ASSESSMENT: A self harm assessment was performed. The patient answered "no" to the question "Do you have thoughts of harming or killing yourself?" and "Have you recently had thoughts about harming or killing others?". FALL RISK ASSESSMENT: Fall risk assessment completed. No fall risk identified. NUTRITIONAL RISK ASSESSMENT: The nutritional risk assessment revealed no deficiencies. FUNCTIONAL ASSESSMENT: Functional assessment: no impairments noted. LEARNING NEEDS ASSESSMENT: The learning needs assessment revealed no barriers. SKIN INTEGRITY ASSESSMENT: Skin integrity risk assessment completed. No skin integrity risk identified. --18:37 Leonor Aquino R.N. PROBLEMS: Vomiting. Costochondritis. Pleurisy. Bronchitis. Depression. Contusion. Abrasion(s). Tetanus Status. Tonsillitis. UTI - Urinary Tract Infection. Immunizations. LNMP - Last Normal Menstrual Period. --18:33 Leonor Aquino R.N. ADDITIONAL SURGERIES: no known surgeries. Interventions ID band on patient. --18:37 Leonor Aquino R.N. PHYSICAL ASSESSMENT Ambulatory to room. GENERAL / NEURO / PSYCH: Oriented X 4. Alert. Appears in no acute distress. She has had new onset of intermittent numbness (middle finger). EXTREMITIES: Capillary refill is less than 2 seconds in the extremities. Extremity pulses are within normal limits. Extremities exhibit normal ROM. Neuro-vascular status intact to the extremity. Right hand: swelling. No erythema, tenderness, laceration, abrasion or puncture wound. No foreign body or deformity. SKIN: Skin intact. Skin is warm and dry. --18:38 Leonor Aquino R.N. NURSING PROGRESS NOTES The initial plan of care for this patient has been created This plan of care was discussed with the patient. Reassurance given. Two patient identifiers checked. Call light placed in reach. Side rails up x 1. Bed placed in lowest position. Brakes of bed on. Patient ready for evaluation. --18:38 Leonor Aquino R.N. DISPOSITION / DISCHARGE Departure time: 1928 PM. Condition at departure: improved and stable. The goals identified in the patient's plan of care were met. No learning barriers present. Discharge instructions provided and reviewed with the patient. Reviewed medication(s) side effects, precautions, dosing and course information. Prescription(s) given to the patient. Patient verbalized understanding. Written instructions provided in Hungarian. No treatment instructions or referrals given to the patient. The patient was discharged by the nurse practitioner. She was discharged home and accompanied by spouse. She left the Emergency Department ambulatory and via private vehicle. Spouse driving. FALL RISK ASSESSMENT: Fall risk assessment completed. No fall risk identified. --19:28 Leonor Aquino R.N. 19:00 01/08/17. BP: 125/84. HR: 85. RR: 14. O2 saturation: 100%. Temp: 98.3 F (oral). Pain level now: 01/13. --19:28 Leonor Aquino R.N. Locked/Released at 01/08/2017 19:28 by Leonor Aquino R.N.
--- NOTE | 2017-01-08 18:55 | ED CLINICAL REPORT ---
Clinical Report - Physicians/Mid Levels [facility] [address] [place] [address] 01/08/2017 18:25 Patient: KAITLIN MCCALL Time Seen: 1840; initial patient contact, initial documentation, patient care assumed. Arrived- By private vehicle. Historian- patient. HISTORY OF PRESENT ILLNESS Chief Complaint: UPPER EXTREMITY PAIN and SWELLING. Modifying factors- worsened by movement of fingers. Not made better by anything. This started about 5 days ago and is still present. Severity is described as being moderate in degree. The quality is noted to be "pain". No radiation. (R middle finger). No chest pain, difficulty breathing, sensory loss, motor loss or repetitive hand use at work. She has had swelling, but not had redness. Patient denies an injury. Similar symptoms previously: None. Recent medical care: Not recently seen/assessed. REVIEW OF SYSTEMS No fever. All systems otherwise negative, except as recorded above. PAST HISTORY See nurses notes. PROBLEMS: Vomiting. Costochondritis. Pleurisy. Bronchitis. Depression. Contusion. Abrasion(s). Tetanus Status. Tonsillitis. UTI - Urinary Tract Infection. Immunizations. LNMP - Last Normal Menstrual Period. --18:33 Leonor Aquino R.N. ADDITIONAL SURGERIES: no known surgeries. SOCIAL HISTORY Heavy tobacco smoker. Occasional alcohol use. History of weekly drug use: marijuana. Recently used drugs just prior to arrival. Under influence in ED. No recent travel. Is a local resident. FAMILY HISTORY Negative. ADDITIONAL NOTES The nursing notes have been reviewed with agreement regarding the chief complaint, HPI, ROS, PMH and patient medications and allergies. PHYSICAL EXAM Vital Signs: 01/08/2017 18:29 BP: 102/65. HR: 70. RR: 15. O2 saturation: 100%. Temp: 98.3 F. Pain level now: 6/10. Have been reviewed as normal and appear to be correct. Appearance: Alert. Oriented X3. No acute distress. Eyes: Pupils equal, round and reactive to light. Eyes normal inspection. Neck: Normal inspection. Neck supple. Respiratory: No respiratory distress. Skin: Skin intact. Skin warm and dry. Normal skin color. Normal skin turgor. Extremities: Upper extremities abnormal to inspection. Upper extremities exhibit normal ROM. Upper extremity tenderness. Right middle finger: mild tenderness and swelling of the middle phalanx. Neurovascular intact distally. No erythema, laceration, abrasion, ecchymosis or puncture wound. No foreign body or deformity. No limitation in movement. No subungual hematoma or amputation present. Extremities otherwise negative. Neuro: Oriented X 3. No motor deficit. No sensory deficit. PROGRESS AND PROCEDURES Patient counseled in person regarding the patient's stable condition and diagnosis. Differential Diagnosis: Other possible considerations: fx, sprain, tendon injury, abscess, cellulitis, oa, ra. Above considerations are based on history and physical exam. Differential diagnosis was discussed with patient. Disposition: Discharged home in good and unchanged condition (18:54). Condition: good and stable. CLINICAL IMPRESSION Single superficial abscess to the right upper extremity. Acute upper extremity pain involving the right middle finger. INSTRUCTIONS Warnings: GENERAL WARNINGS: Return or contact your physician immediately if your condition worsens or changes unexpectedly, if not improving as expected, or if other problems arise. Specifically return if problem worsens. Prescription Medications: Motrin 800 mg tablets: take 1 tablet orally every 8 hours as needed for pain. Dispense thirty (30). No refills. Substitution is permissible. Bactrim DS 800 mg / 160 mg: Take 1 tablet orally every 12 hours for 7 days. Dispense fourteen (14). No refills. Substitution is permissible. Follow-up: Follow up with your doctor in about three days as needed. Call for an appointment. Summary of care provided to patient. Understanding of the discharge instructions verbalized by patient. (Electronically signed by Elizabeth Martinez A.R.N.P. 01/08/2017 21:25)
--- NOTE | 2017-01-08 21:26 | ED MAR SUMMARY ---
..... Medication Administration Record [facility] [address] [place], [place] [id number] Patient: KAITLIN MCCALL Visit ID: [id number] 26y, F Weight: 42.6 kg Height/Length: 64 in BMI: 16.1 ALLERGIES: No Known Drug Allergy
--- NOTE | 2017-01-08 21:26 | ED MED RECONCILIATION SUMMARY ---
Patient: KAITLIN MCCALL Medication Reconciliation Report [facility] VisitID: [id number] [address] [place] [address] 26y, F Registration Date/Time: 01/08/2017 Weight: 42.6 kg Height/Length: 64 in. BMI: 16.1 ALLERGIES: No Known Drug Allergy The patient's Home Medications are listed below: NONE. The source(s) of the original Home Medication information: patient The following Medications were given to the patient in the Emergency Department: None. The following Medications were prescribed to the patient: Motrin 800 mg tablets: take 1 tablet orally every 8 hours as needed for pain. Dispense thirty (30). No refills. Substitution is permissible. -- Elizabeth Martinez, Jennifer.R.N.P. Bactrim DS 800 mg / 160 mg: Take 1 tablet orally every 12 hours for 7 days. Dispense fourteen (14). No refills. Substitution is permissible. -- Elizabeth Martinez A.R.N.P.
--- NOTE | 2017-01-08 21:26 | ED DISCHARGE INSTRUCTIONS ---
Patient: KAITLIN MCCALL General Instructions [facility] VisitID: [id number] [place] [address] 26y, F Registration Date/Time: 01/08/2017 Single superficial abscess to the right upper extremity. Acute upper extremity pain involving the right middle finger. INSTRUCTIONS Warnings: GENERAL WARNINGS: Return or contact your physician immediately if your condition worsens or changes unexpectedly, if not improving as expected, or if other problems arise. Specifically return if problem worsens. Prescription Medications: Motrin 800 mg tablets: take 1 tablet orally every 8 hours as needed for pain. Dispense thirty (30). No refills. Substitution is permissible. Bactrim DS 800 mg / 160 mg: Take 1 tablet orally every 12 hours for 7 days. Dispense fourteen (14). No refills. Substitution is permissible. Follow-up: Follow up with your doctor in about three days as needed. Call for an appointment. Summary of care provided to patient. Understanding of the discharge instructions verbalized by patient. ADDITIONAL INFORMATION Abscess (Antibiotic Treatment Only) An abscess (sometimes called a boil) occurs when bacteria get trapped under the skin and begin to grow. Pus forms inside the abscess as the body responds to the bacteria. An abscess can occur with an insect bite, ingrown hair, blocked oil gland, pimple, cyst, or puncture wound. In the early stages, redness and tenderness are the only symptoms. Sometimes, this stage can be treated with antibiotics alone. If the abscess does not respond to antibiotic treatment, it will need to be drained with a small cut, under local anesthesia. Home care The following will help you care for your abscess at home: Soak the wound in hot water or apply hot packs (small towel soaked in hot water) to the area for 20 minutes at a time. Do this three to four times a day. Apply antibiotic cream or ointment onto the skin 3-4 times a day, unless something else was prescribed. Some ointments include an antibiotic plus a local pain reliever. If your doctor prescribed antibiotics, do not stop taking this medication until you have finished the prescribed course or the doctor tells you to stop. You may use an rljn-[id number] pain medication to control pain, unless another pain medicine was prescribed. If you have chronic liver or kidney disease or ever had a stomach ulcer or GI bleeding, talk with your doctor before using these any of these. Follow-up care Follow up with your health care provider as advised by our staff. Look at your wound each day for the signs of worsening infection listed below. When to seek medical care Get prompt medical attention if any of the following occur: An increase in redness or swelling Red streaks in the skin leading away from the abscess An increase in local pain or swelling Fever of 100.4F (38C) or higher, or as directed by your health care provider Pus or fluid coming from the abscess Cellulitis You have an infection of the skin known as cellulitis. This usually starts with a scrape, cut, insect bite, blister or other opening in the skin which becomes infected. This is a serious condition. It must be watched closely to be sure the infection is not spreading. With antibiotic treatment, the size of the red area will gradually shrink in size until the skin returns to normal. This will take 7-10 days. The red area should never increase in size once the antibiotic medicine has been started. Occasionally, an infection will be resistant to one antibiotic and another one will have to be used. Home Care: 1) Limit the use of the affected part, since excess movement can cause the infection to spread. 2) If the infection is on your leg, walk as little as possible during the first few days of the treatment. Keep your leg elevated while sitting. This will reduce swelling. 3) Take all of the antibiotic medicine exactly as directed until it is gone. Be careful not to miss any doses, especially during the first seven days. Follow Up with your doctor or this facility as directed. Check the infected area daily for the warning signs listed below. Get Prompt Medical Attention if any of the following occur: -- Spreading area of redness -- Increasing swelling or pain -- Appearance of pus or drainage -- Fever over 100.4 F (38.0 C) oral, or over 101.4 F (38.6 C) rectal, after two days on antibiotics Staph Infection (MRSA) "Staph" is the short name for the common bacteria called "staphylococcus aureus". Staph bacteria are often present on the skin without causing an infection. If it gets under the skin an infection occurs. This causes redness, tenderness, swelling and sometimes fluid drainage. MRSA stands for "Methicillin-Resistant Staph Aureus". Unlike a common staph infection, MRSA bacteria are resistant to the usual antibiotics and harder to treat. Also, MRSA is more toxic than common staph bacteria. It can spread quickly throughout the body and cause a life-threatening illness. MRSA is spread to others by direct physical contact with the bacteria. MRSA can also be transmitted from items contaminated by a person who has the bacteria, such as bandages, towels, bed sheets, or sports equipment. It is not spread through the air. Once you have a MRSA skin infection, you are at risk of having it recur in the future. If MRSA infection is suspected, the doctor may take a wound culture to confirm the diagnosis. Any abscess will be drained. One or sometimes two antibiotics that work against MRSA will be prescribed. Home Care: 1) Take any antibiotics prescribed exactly as directed until they are gone. 2) Follow the same washing procedures as outlined for Household Members below. 3) Keep draining wounds covered with clean, dry bandages. Change dressings as they become soiled. 4) You and those in contact with you should wash their hands frequently with soap and warm water or use an alcohol-based hand hospice manager. Do this after each time you change the bandage or touch the wound. 5) Avoid sharing personal items such as towels, washcloths, razors, clothing, or uniforms. Wash soiled sheets, towels or clothes in hot water with laundry detergent. Use an automatic clothes dryer set on high to kill any remaining bacteria. 6) Remove any artificial nails and nail latvian. 7) If you use a gym, wipe down equipment before and after each use. Treatment Of Household Members If you have been diagnosed with possible MRSA infection, those living with you are at higher risk of carrying the bacteria on their skin or in their nose, even if there is no sign of infection. Bacteria must be removed from the skin of all household members (including you) at the same time, so that it is not passed back and forth. Advise them to remove the bacteria as follows: Wash your whole body (scalp to toes) daily for five days with Hibiclens (chlorhexidine). Scrub fingernails with a brush for one minute twice a day. If any skin infections are present (boils, abscess, infected cut) these must be treated by a doctor. Washing alone will not treat a MRSA infection. Clean counter tops and children's toys; do not share personal items such as toothbrush and razors. It is okay to share glasses, plates, utensils. If antibiotic ointment was prescribed use it as directed. Follow Up with your doctor or as advised by our staff. If a wound culture was taken, call as directed in two days to obtain the results. If the culture result is positive for MRSA, tell medical personnel in the future that you were treated for this type of infection. Get Prompt Medical Attention if any of the following occur: -- Increasing redness, swelling or pain -- Red streaks in the skin around the wound -- Weakness or dizziness -- New appearance of pus or drainage from the wound -- New fever over 100.4 F (38.0 C) Ibuprofen Oral tablet What is this medicine? IBUPROFEN (eye BYOO proe fen) is a non-steroidal anti-inflammatory drug (NSAID). It is used for dental pain, fever, headaches or migraines, osteoarthritis, rheumatoid arthritis, or painful monthly periods. It can also relieve minor aches and pains caused by a cold, flu, or sore throat. How should I use this medicine? Take this medicine by mouth with a glass of water. Follow the directions on the prescription label. Take this medicine with food if your stomach gets upset. Try to not lie down for at least 10 minutes after you take the medicine. Take your medicine at regular intervals. Do not take your medicine more often than directed. A special MedGuide will be given to you by the pharmacist with each prescription and refill. Be sure to read this information carefully each time. Talk to your gas meter repair supervisor regarding the use of this medicine in children. Special care may be needed. What side effects may I notice from receiving this medicine? Side effects that you should report to your doctor or health technical healthcare consultant as soon as possible: allergic reactions like skin rash, itching or hives, swelling of the face, lips, or tongue black or bloody stools, blood in the urine or in vomit breathing problems changes in vision chest pain general ill feeling or flu-like symptoms nausea or vomiting redness, blistering, peeling or loosening of the skin, including inside the mouth slurred speech or weakness on one side of the body stomach pain unexplained weight gain or swelling unusually weak or tired yellowing of eyes or skin Side effects that usually do not require medical attention (report to your doctor or health technical healthcare consultant if they continue or are bothersome): constipation or diarrhea dizziness gas or heartburn stomach upset What may interact with this medicine? Do not take this medicine with any of the following medications: cidofovir ketorolac methotrexate pemetrexed This medicine may also interact with the following medications: alcohol aspirin diuretics lithium other drugs for inflammation like prednisone warfarin What if I miss a dose? If you miss a dose, take it as soon as you can. If it is almost time for your next dose, take only that dose. Do not take double or extra doses. Where should I keep my medicine? Keep out of the reach of children. Store at room temperature between 15 and 30 degrees C (59 and 86 degrees F). Keep container tightly closed. Throw away any unused medicine after the expiration date. What should I tell my health care provider before I take this medicine? They need to know if you have any of these conditions: asthma cigarette smoker drink more than 3 alcohol containing drinks a day heart disease or circulation problems such as heart failure or leg edema (fluid retention) high blood pressure kidney disease liver disease stomach bleeding or ulcers an unusual or allergic reaction to ibuprofen, aspirin, other NSAIDS, other medicines, foods, dyes, or preservatives or trying to get breast-feeding What should I watch for while using this medicine? Tell your doctor or healthcare professional if your symptoms do not start to get better or if they get worse. This medicine does not prevent heart attack or stroke. In fact, this medicine may increase the chance of a heart attack or stroke. The chance may increase with longer use of this medicine and in people who have heart disease. If you take aspirin to prevent heart attack or stroke, talk with your doctor or health technical healthcare consultant. Do not take other medicines that contain aspirin, ibuprofen, or naproxen with this medicine. Side effects such as stomach upset, nausea, or ulcers may be more likely to occur. Many medicines available without a prescription should not be taken with this medicine. This medicine can cause ulcers and bleeding in the stomach and intestines at any time during treatment. Ulcers and bleeding can happen without warning symptoms and can cause . To reduce your risk, do not smoke cigarettes or drink alcohol while you are taking this medicine. You may get drowsy or dizzy. Do not drive, use machinery, or do anything that needs mental alertness until you know how this medicine affects you. Do not stand or sit up quickly, especially if you are an older patient. This reduces the risk of dizzy or fainting spells. This medicine can cause you to bleed more easily. Try to avoid damage to your teeth and gums when you brush or floss your teeth. Sulfamethoxazole, Trimethoprim Oral tablet What is this medicine? SULFAMETHOXAZOLE; TRIMETHOPRIM or SMX-TMP (suhl fuh meth OK lucas zohl; trye METH oh prim) is a combination of a sulfonamide antibiotic and a second antibiotic, trimethoprim. It is used to treat or prevent certain kinds of bacterial infections. It will not work for colds, flu, or other viral infections. How should I use this medicine? Take this medicine by mouth with a full glass of water. Follow the directions on the prescription label. Take your medicine at regular intervals. Do not take it more often than directed. Do not skip doses or stop your medicine early. Talk to your gas meter repair supervisor regarding the use of this medicine in children. Special care may be needed. This medicine has been used in children as young as 2 months of age. What side effects may I notice from receiving this medicine? Side effects that you should report to your doctor or health technical healthcare consultant as soon as possible: allergic reactions like skin rash or hives, swelling of the face, lips, or tongue breathing problems fever or chills, sore throat irregular heartbeat, chest pain joint or muscle pain pain or difficulty passing urine red pinpoint spots on skin redness, blistering, peeling or loosening of the skin, including inside the mouth unusual bleeding or bruising unusually weak or tired yellowing of the eyes or skin Side effects that usually do not require medical attention (report to your doctor or health technical healthcare consultant if they continue or are bothersome): diarrhea dizziness headache loss of appetite nausea, vomiting nervousness What may interact with this medicine? Do not take this medicine with any of the following medications: aminobenzoate potassium dofetilide metronidazole This medicine may also interact with the following medications: CRUZ inhibitors like benazepril, enalapril, lisinopril, and ramipril cyclosporine digoxin diuretics indomethacin medicines for diabetes methenamine methotrexate phenytoin potassium supplements pyrimethamine sulfinpyrazone tricyclic antidepressants warfarin What if I miss a dose? If you miss a dose, take it as soon as you can. If it is almost time for your next dose, take only that dose. Do not take double or extra doses. Where should I keep my medicine? Keep out of the reach of children. Store at room temperature between 20 to 25 degrees C (68 to 77 degrees F). Protect from light. Throw away any unused medicine after the expiration date. What should I tell my health care provider before I take this medicine? They need to know if you have any of these conditions: anemia asthma being treated with anticonvulsants if you frequently drink alcohol containing drinks kidney disease liver disease low level of folic acid or [id number] dehydrogenase poor nutrition or malabsorption porphyria severe allergies thyroid disorder an unusual or allergic reaction to sulfamethoxazole, trimethoprim, sulfa drugs, other medicines, foods, dyes, or preservatives or trying to get breast-feeding What should I watch for while using this medicine? Tell your doctor or health technical healthcare consultant if your symptoms do not improve. Drink several glasses of water a day to reduce the risk of kidney problems. Do not treat diarrhea with over the counter products. Contact your doctor if you have diarrhea that lasts more than 2 days or if it is severe and watery. This medicine can make you more sensitive to the sun. Keep out of the sun. If you cannot avoid being in the sun, wear protective clothing and use a sunscreen. Do not use sun lamps or tanning beds/booths. You have been given the following additional information: Abscess, Antiobiotic Treatment Only Cellulitis MRSA Skin Infection, Suspected Or Confirmed Ibuprofen Oral tablet Sulfamethoxazole, Trimethoprim Oral tablet (Electronically signed by Elizabeth Martinez A.R.NAntoinePAntoine 01/08/2017 21:25)
--- NOTE | 2017-01-08 21:26 | ED MED RECONCILIATION SUMMARY ---
Patient: KAITLIN MCCALL Medication Reconciliation Report [facility] VisitID: [id number] [address] [place] [address] 26y, F Registration Date/Time: 01/08/2017 Weight: 42.6 kg Height/Length: 64 in. BMI: 16.1 ALLERGIES: No Known Drug Allergy The patient's Home Medications are listed below: NONE. The source(s) of the original Home Medication information: patient The following Medications were given to the patient in the Emergency Department: None. The following Medications were prescribed to the patient: Motrin 800 mg tablets: take 1 tablet orally every 8 hours as needed for pain. Dispense thirty (30). No refills. Substitution is permissible. -- Elizabeth Martinez, Jennifer.R.N.P. Bactrim DS 800 mg / 160 mg: Take 1 tablet orally every 12 hours for 7 days. Dispense fourteen (14). No refills. Substitution is permissible. -- Elizabeth Martinez A.R.N.P.
--- NOTE | 2017-01-08 21:26 | ED MAR SUMMARY ---
..... Medication Administration Record [facility] [address] [place], [place] [id number] Patient: KAITLIN MCCALL Visit ID: [id number] 26y, F Weight: 42.6 kg Height/Length: 64 in BMI: 16.1 ALLERGIES: No Known Drug Allergy
== END 2017-01-08 19:25 | disposition home or self-care (01) ==
LOC: ED SRH 18:24
DX: L02.511 Cutaneous abscess of right hand (principal); M79.644 Pain in right finger(s); F17.210 Nicotine dependence, cigarettes, uncomplicated; F12.10 Cannabis abuse, uncomplicated